=== PATIENT | female | born 1975 | race American Indian/Alaskan Native ===

== ENCOUNTER 2016-06-17 01:23 | Observation (INO) | payer BC, OTHER ==
[2016-06-17 02:15] LABS: CHLORIDE,CL 105 mmol/L (98-110); SODIUM,NA 136 mmol/L (136-146)
--- NOTE | 2016-06-17 02:32 | EDM.PDOC ---
ED HPI SEIZURE COMPLAINT - General Chief Complaint: Syncope Stated Complaint: FAINTED Time Seen by Provider: 06/17/16 02:20 Source of Information: Reports: Patient, Family, RN - History of Present Illness INITIAL COMMENTS - FREE TEXT/NARRATIVE: She's had a cold for about a week. She is at some facial fullness. Tonight she got out of bed her heard her fall and the floor. By the time he got into helper she is set up. Then she fell again. She said she lost consciousness for a brief period each time. There was no suspected seizure activity. There is no chest pain. There is no dyspnea. She feels weak. She denies sleep deprivation. She denies body aches. No vomiting. - Related Data Allergies/ADRs: Allergies Allergy/AdvReac Type Severity Reaction Status Date / Time No Known Allergies Allergy Verified 06/17/16 01:31 Home Meds: Home Meds . 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: Musculoskeletal History: Reports: None Neurological History: Reports: None Psychiatric History: Reports: None Endocrine/Metabolic History: Reports: None Hematologic History: Reports: None Immunologic History: Reports: None Oncologic (Cancer) History: Reports: None Dermatologic History: Reports: None - Past Surgical History Head Surgeries/Procedures: Reports: None HEENT Surgical History: Reports: None Cardiovascular Surgical History: Reports: None GI Surgical History: Reports: Cholecystectomy Female Surgical History: Reports: None Endocrine Surgical History: Reports: None Neurological Surgical History: Reports: None Musculoskeletal Surgical History: Reports: None Oncologic Surgical History: Reports: None Social & Family History - Tobacco Use Smoking Status *Q: Never Smoker - Caffeine Use Caffeine Use: Reports: Coffee - Recreational Drug Use Recreational Drug Use: No ED ROS GENERAL - Review of Systems Review Of Systems: See Below Constitutional: Reports: weakness. Denies: fever, chills HEENT: Reports: Sinus problem. Denies: Throat pain Respiratory: Denies: shortness of breath, cough, sputum Cardiovascular: Denies: Chest pain, Edema GI/Abdominal: Denies: Abdominal pain, Anorexia, Black stool, Bloody stool, Hematemesis, Hematochezia : Denies: dysuria Skin: Denies: cyanosis, jaundice, mottled Neurological: Denies: confusion - Physical Exam Exam: See Below Exam Limited By: No limitations General Appearance: alert, no apparent distress Ears: No: hearing loss Nose: other. No: nasal deformity, nasal flaring Throat/Mouth: Normal lips (Maxillary sinus pressure and tenderness.), Normal voice, No airway compromise Head Exam: atraumatic. No: scalp ecchymosis Neck: supple, non-tender Respiratory/Chest: no respiratory distress, lungs clear Cardiovascular: regular rate, rhythm, no JVD, no murmur, no rub. No: diastolic murmur, systolic murmur GI/Abdominal: non tender Neuro Exam (Abbreviated): alert, oriented Extremities: No: pedal edema (12-lead EKG shows normal sinus rhythm there some slight ST depression 23 and aVF I think this is a nonspecific change. Chest x- ray no acute disease there is an granuloma in the right midlung zone. CT of the head shows no acute change.) Psychiatric: normal mood Course - Vital Signs Last Recorded V/S: Last Vital Signs Temp 99.1 F 06/17/16 01:32 Pulse 105 H 06/17/16 01:48 Resp 17 06/17/16 01:48 BP 112/65 06/17/16 01:48 Pulse Ox 95 06/17/16 01:48 Orthostatic Blood Pressure [ 109/63 Standing] Orthostatic Blood Pressure [ 120/63 Supine] - Orders/Labs/Meds Orders: Active Orders 24 hr Category Date Time Status Cardiac Monitoring [RC] . DIRECTED Care 06/17/16 01:50 Active EKG Documentation Completion [RC] STAT Care 06/17/16 01:41 Active Chest 2V [CR] Stat Exams 06/17/16 01:41 Taken Head wo Cont [CT] Stat Exams 06/17/16 01:41 Taken Labs: Laboratory Tests 06/17/16 06/17/16 06/17/16 Range/Units 01:47 01:47 01:47 WBC 5.09 (4.0-11.0) K/uL RBC 4.21 L (4.30-5.90) M/uL Hgb 12.3 (12.0-16.0) g/dL Hct 36.5 (36.0-46.0) % MCV 86.7 (80.0-98.0) fL MCH 29.2 (27.0-32.0) pg MCHC 33.7 (31.0-37.0) g/dL RDW Std Deviation 42.4 (28.0-62.0) fl RDW Coeff of Kristine 13 (11.0-15.0) % Plt Count 150 (150-400) K/uL MPV 9.80 (7.40-12.00) fL Neut % (Auto) 75.8 (48.0-80.0) % Lymph % (Auto) 12.0 L (16.0-40.0) % Holt % (Auto) 11.8 (0.0-15.0) % Eos % (Auto) 0.2 (0.0-7.0) % Baso % (Auto) 0.2 (0.0-1.5) % Neut # 3.9 (1.4-5.7) K/uL Lymph # 0.6 (0.6-2.4) K/uL Holt # 0.6 (0.0-0.8) K/uL Eos # 0.0 (0.0-0.7) K/uL Baso # 0.0 (0.0-0.1) K/uL Nucleated RBC % 0.0 /100WBC Nucleated RBCs # 0 K/uL Sodium 136 (136-146) mmol/L Potassium 3.8 (3.5-5.1) mmol/L Chloride 105 (98-110) mmol/L Carbon Dioxide 22 (21-31) mmol/L BUN 14 (6.0-23.0) mg/dL Creatinine 0.9 (0.6-1.5) mg/dL Est Cr Clr Drug Dosing 76.23 mL/min Estimated GFR (MDRD) > 60.0 ml/min Glucose 116 H (60-110) mg/dL Calcium 8.7 L (8.8-10.8) mg/dL Total Bilirubin 0.4 (0.1-1.5) mg/dL AST 20 (5-40) IU/L ALT 18 (8-54) IU/L Alkaline Phosphatase 80 (40-150) CK-MB (CK-2) 0.6 (0-6.6) ng/ml Troponin I < 0.10 (0.0-0.29) NG/ML Total Protein 7.8 (6.0-8.0) g/dL Albumin 4.1 (3.5-5.0) g/dL Globulin 3.7 H (2.0-3.5) g/dL Albumin/Globulin Ratio 1.1 L (1.3-2.8) HCG, Qual (NEG) 06/17/16 Range/Units 01:47 WBC (4.0-11.0) K/uL RBC (4.30-5.90) M/uL Hgb (12.0-16.0) g/dL Hct (36.0-46.0) % MCV (80.0-98.0) fL MCH (27.0-32.0) pg MCHC (31.0-37.0) g/dL RDW Std Deviation (28.0-62.0) fl RDW Coeff of Kristine (11.0-15.0) % Plt Count (150-400) K/uL MPV (7.40-12.00) fL Neut % (Auto) (48.0-80.0) % Lymph % (Auto) (16.0-40.0) % Holt % (Auto) (0.0-15.0) % Eos % (Auto) (0.0-7.0) % Baso % (Auto) (0.0-1.5) % Neut # (1.4-5.7) K/uL Lymph # (0.6-2.4) K/uL Holt # (0.0-0.8) K/uL Eos # (0.0-0.7) K/uL Baso # (0.0-0.1) K/uL Nucleated RBC % /100WBC Nucleated RBCs # K/uL Sodium (136-146) mmol/L Potassium (3.5-5.1) mmol/L Chloride (98-110) mmol/L Carbon Dioxide (21-31) mmol/L BUN (6.0-23.0) mg/dL Creatinine (0.6-1.5) mg/dL Est Cr Clr Drug Dosing mL/min Estimated GFR (MDRD) ml/min Glucose (60-110) mg/dL Calcium (8.8-10.8) mg/dL Total Bilirubin (0.1-1.5) mg/dL AST (5-40) IU/L ALT (8-54) IU/L Alkaline Phosphatase (40-150) CK-MB (CK-2) (0-6.6) ng/ml Troponin I (0.0-0.29) NG/ML Total Protein (6.0-8.0) g/dL Albumin (3.5-5.0) g/dL Globulin (2.0-3.5) g/dL Albumin/Globulin Ratio (1.3-2.8) HCG, Qual NEGATIVE (NEG) Departure - Departure Time of Disposition: 02:32 Disposition: Refer to Observation Clinical Impression: Syncope Forms: ED Department Discharge Additional Instructions: I spoke with the patient and her family and recommended monitoring in the hospital. We discussed her Ultram conchita. We discussed using amoxicillin as she is in sinus tenderness and likely has an acute sinusitis. Discussed use of telemetry. She agrees. - My Orders Last 24 Hours: My Active Orders 06/17/16 01:41 EKG Documentation Completion [RC] STAT Chest 2V [CR] Stat Head wo Cont [CT] Stat 06/17/16 01:50 Cardiac Monitoring [RC] . DIRECTED - Assessment/Plan Last 24 Hours: My Active Orders 06/17/16 01:41 EKG Documentation Completion [RC] STAT Chest 2V [CR] Stat Head wo Cont [CT] Stat 06/17/16 01:50 Cardiac Monitoring [RC] . DIRECTED
[2016-06-17] MEDS ORDERED: Temazepam 15 MG Cap PO PRN (02:35)
[2016-06-17] MEDS ORDERED: Acetaminophen 325 MG Tab PO PRN (02:35)
[2016-06-17] MEDS ORDERED: Magnesium Hydroxide 400 MG/5 ML Susp 30 ML Cup PO PRN (02:35)
[2016-06-17] MEDS ORDERED: Ondansetron 4 MG Tab.DIS PO PRN (02:35)
[2016-06-17] MEDS ORDERED: Sodium Chloride 0.9% 2.5 ML Syringe FLUSH PRN (02:37)
[2016-06-17] MEDS ORDERED: Sodium Chloride 0.9% 10 ML Syringe FLUSH PRN (02:37)
[2016-06-17] MEDS: Amoxicillin 500 MG Cap PO SCH ×3 (03:14→18:27)
--- NOTE | 2016-06-17 08:16 | PCM.HP ---
<Lovely Smith M - Last Filed: 06/17/16 13:41> H&P History of Present Illness - General Date of Service: 06/17/16 Admit Problem/Dx: syncope Source of Information: Patient History Limitations: Reports: No limitations - History of Present Illness Initial Comments - Free Text/Narative: This 41 year old otherwise healthy female presented to the ED early this morning after syncope around midnight. She reports she got up from bed and used the bathroom. She was washing her hads and felt very nauseated and clammy, and started to feel like she was going to pass out. She started walked towards her bed and fell passing out. He heard her fall and was at her side immediately. No seizure activity noted. She awoke easily shortly after. She reports recently she has been ill, start on Wednesday. Her children have been ill as well, son has had both Influenza A and B and daughter a URI not influenza. She has had facial tenderness, with congestion cough body aches and malaise. She reports her temp has been elevated 100.7 at max feeling feverish and chills at home. Her appetite has been poor along with oral water intake. She use Flonase daily, otherwise has no other medications. In the ED all labwork was WNL. influenza swab negative. CXR negative for acute cardiopulmonary process. There was a 6 mm weill circumscribed calcified granuloma in R midlung. Head CT was unremarkable. She will be admitted and monitored on telemetry for syncope. Will treat for sinusitis as well. Headache Pain Score (Numeric/FACES): 2 - Related Data Allergies/Adverse Reactions: Allergies Allergy/AdvReac Type Severity Reaction Status Date / Time No Known Allergies Allergy Verified 06/17/16 01:31 Home Medications: Home Meds . [No Known Home Meds] 06/17/16 [History] Past Medical History HEENT History: Reports: Sinusitis Cardiovascular History: Reports: None. Denies: Blood clots/VTE/DVT, CAD, High cholesterol, Hypertension, PA Respiratory History: Reports: None. Denies: Asthma, COPD, PE Gastrointestinal History: Reports: None. Denies: GERD, GI bleed Genitourinary History: Reports: None. 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 Denies: CVA, TIA Psychiatric History: Reports: None Endocrine/Metabolic History: Reports: None. Denies: Diabetes, type II Hematologic History: Reports: None Immunologic History: Reports: None Oncologic (Cancer) History: Reports: None Dermatologic History: Reports: None - Past Surgical History Head Surgeries/Procedures: Reports: None HEENT Surgical History: Reports: None Cardiovascular Surgical History: Reports: None GI Surgical History: Reports: Cholecystectomy Female Surgical History: Reports: None Endocrine Surgical History: Reports: None Neurological Surgical History: Reports: None Musculoskeletal Surgical History: Reports: None Oncologic Surgical History: Reports: None Social & Family History - Family History Family Medical History: Noncontributory - Tobacco Use Smoking Status *Q: Never Smoker Second Hand Smoke Exposure: Yes - Caffeine Use Caffeine Use: Reports: Coffee - Recreational Drug Use Recreational Drug Use: No - Living Situation & Occupation Living situation: Reports: , with family Occupation: employed H&P Review of Systems - Review of Systems: Review Of Systems: See Below General: Reports: fever, chills, malaise, decreased appetite HEENT: Reports: headaches (frontal), sinus congestion, sore throat. Denies: ear pain Pulmonary: Reports: cough. Denies: shortness of breath Cardiovascular: Reports: no symptoms. Denies: chest pain, dyspnea on exertion, orthopnea, edema Gastrointestinal: Reports: Decreased appetite, Nausea. Denies: Abdominal pain, Black stool, Bloody stool, Vomiting Genitourinary: Reports: no symptoms. Denies: dysuria, frequency, burning, pain Musculoskeletal: Reports: no symptoms Skin: Reports: no symptoms Psychiatric: Reports: no symptoms Neurological: Reports: syncope. Denies: confusion, dizziness, seizure, trouble speaking Hematologic/Lymphatic: Reports: no symptoms Immunologic: Reports: no symptoms Exam - Exam Exam: See Below - Vital Signs Vital Signs: Last Vital Signs Temp 98.7 F 06/17/16 03:06 Pulse 92 06/17/16 03:06 Resp 20 06/17/16 03:06 BP 116/55 L 06/17/16 03:06 Pulse Ox 95 06/17/16 03:35 Weight: 161 lb 6.054 oz - Exam General: alert, oriented, cooperative HEENT: PERRLA, Hearing intact, Mucosa moist & pink, Nares patent, Normal nasal septum, Posterior pharynx clear, Conjunctiva clear, EOMI, EACs clear, TMs clear Neck: supple, trachea midline, 2+ carotid pulse wo bruit, full range of motion ( no nuchal rigidity). No: lymphadenopathy Lungs: Clear to auscultation, Normal respiratory effort Cardiovascular: regular rate, regular rhythm, normal S1, normal S2. No: bradycardia, tachycardia, systolic murmur Abdomen: normal bowel sounds, soft. No: organomegaly, guarding, tenderness, absent bowel sounds Extremities: normal inspection, normal pulses. No: edema, increased warmth Skin: warm, dry, intact Neurological: cranial nerves intact, reflexes equal bilateral Neuro Extensive - Mental Status: alert, oriented x3, normal mood/affect, normal cognition Neuro Extensive - Motor, Sensory, Reflexes: CN II-XII intact, normal gait, normal reflexes Psychiatric: alert, normal affect, normal mood - Patient Data Lab Results last 24 hrs: Laboratory Results - last 24 hr 06/17/16 06/17/16 Range/Units 05:01 05:01 Magnesium 2.1 (1.5-2.3) mEq/L Troponin I < 0.10 (0.0-0.29) NG/ML Result Diagrams: 06/17/16 01:47 06/17/16 01:47 EKG INTERPRETATION EKG Date: 06/17/16 Rhythm: NSR Rate (beats/min): 70 Oden: normal ST-T: depressed (likely non-specific) Comparison: NA - no prior EKG *Q Meaningful Use (ADM) - VTE *Q VTE Criteria *Q: - VTE Risk Assess *Q Each Risk Factor Represents 1 Point: Age 41 - 59 years Total Score 1 Point Risk Factors: 1 Each Risk Factor Represents 2 Points: None Total Score 2 Point Risk Factors: 0 Each Risk Factor Represents 3 Points: None Total Score 3 Point Risk Factors: 0 Each Risk Factor Represents 5 Points: None Total Score 5 Point Risk Factors: 0 Venous Thromboembolism Risk Factor Score *Q: 1 - Stroke *Q Stroke Criteria *Q: - AMI *Q AMI Criteria *Q: - Problem List (1) Sinusitis SNOMED Code(s): 98642089 ICD Code: J32.9 - CHRONIC SINUSITIS, UNSPECIFIED Status: Acute Current Visit: Yes Qualifiers: Sinusitis location: frontal Chronicity: acute Recurrence: non-recurrent Qualified Code(s): J01.10 - Acute frontal sinusitis, unspecified (2) Syncope SNOMED Code(s): 816422196 ICD Code: R55 - SYNCOPE AND COLLAPSE Status: Acute Current Visit: Yes Qualifiers: Encounter type: initial encounter Problem List Initiated/Reviewed/Updated: Yes Orders Last 24hrs: Active Orders 24 hr Category Date Time Status Telemetry Monitoring [Cardiac Monitoring] [RC] Q8H Care 06/17/16 02:52 Active Medication Orders Acetaminophen (Tylenol) 650 mg PO Q4H PRN PRN Reason: Pain (Mild 1-3)/fever Amoxicillin (Amoxil) 500 mg PO Q8H [facility] Last Admin: 06/17/16 03:14 Dose: 500 mg Enoxaparin Sodium (Lovenox) 40 mg SUBCUT DAILY [facility] Magnesium Hydroxide (Milk Of Magnesia) 30 ml PO Q12H PRN PRN Reason: Constipation Ondansetron HCl (Zofran Odt) 4 mg PO Q4H PRN PRN Reason: nausea, able to take PO Sodium Chloride (Saline Flush) 10 ml FLUSH ASDIRECTED PRN PRN Reason: Keep Vein Open Sodium Chloride (Saline Flush) 2.5 ml FLUSH ASDIRECTED PRN PRN Reason: Keep Vein Open Temazepam (Restoril) 15 mg PO BEDTIME PRN PRN Reason: Sleep Assessment/Plan Comment:: This 41 year old female admitted for syncope and acute sinusitis 1. Syncope: Potentially from dehydration in relation to recent illness. Will obtain carotid doppler as well as monitor for 24 hours on telemetry to rule out arrhythmias. Will give NS 125 x 1 L. Orthostatic VS stable. 2. Sinusitis: Amoxicillin TID. Will order Flonase. VTE: Lovenox Dispo: Likely discharge in am. <Dorina Larsen - Last Filed: 06/17/16 15:43> Exam - Vital Signs Vital Signs: Last Vital Signs Temp 98.3 F 06/17/16 11:43 Pulse 71 06/17/16 11:43 Resp 22 H 06/17/16 11:43 BP 113/62 06/17/16 11:43 Pulse Ox 96 06/17/16 11:43 Orthostatic Blood Pressure [ 127/75 Sitting] Orthostatic Blood Pressure [ 125/62 Standing] Orthostatic Blood Pressure [ 122/65 Supine] - Patient Data Lab Results last 24 hrs: Laboratory Results - last 24 hr 06/17/16 06/17/16 06/17/16 Range/Units 05:01 05:01 12:02 Magnesium 2.1 (1.5-2.3) mEq/L Troponin I < 0.10 < 0.10 (0.0-0.29) NG/ML Result Diagrams: 06/17/16 01:47 06/17/16 01:47 Jorgito Results last 24 hrs: Microbiology 06/17/16 10:30 Influenza Type A Antigen Screen - Final Nasal, Right NEGATIVE INFLUENZA A VIRUS AG Influenza Type B Antigen Screen - Final NEGATIVE INFLUENZA B VIRUS AG *Q Meaningful Use (ADM) - VTE *Q VTE Criteria *Q: - Stroke *Q Stroke Criteria *Q: - AMI *Q AMI Criteria *Q: Orders Last 24hrs: Active Orders 24 hr Category Date Time Status Orthostatic Vital Signs [RC] ASDIRECTED Care 06/17/16 08:23 Active Telemetry Monitoring [Cardiac Monitoring] [] Q8H Care 06/17/16 02:52 Active Carotid Comp [US] Routine Exams 06/17/16 09:13 Taken Fluticasone Propionate [Flonase] Med 06/17/16 14:15 Active 0 gm NASBOTH DAILY Sodium Chloride 0.9% [Normal Saline] 1,000 ml Med 06/17/16 10:00 Active IV ASDIRECTED Medication Orders Acetaminophen (Tylenol) 650 mg PO Q4H PRN PRN Reason: Pain (Mild 1-3)/fever Amoxicillin (Amoxil) 500 mg PO Q8H [facility] Last Admin: 06/17/16 10:18 Dose: 500 mg Admin: 06/17/16 03:14 Dose: 500 mg Enoxaparin Sodium (Lovenox) 40 mg SUBCUT DAILY [facility] Fluticasone Propionate (Flonase) 0 gm NASBOTH DAILY [facility] Last Admin: 06/17/16 14:31 Dose: 1 spray Sodium Chloride (Normal Saline) 1,000 mls @ 125 mls/hr IV ASDIRECTED [facility] Stop: 06/17/16 17:59 Last Admin: 06/17/16 10:17 Dose: 125 mls/hr Magnesium Hydroxide (Milk Of Magnesia) 30 ml PO Q12H PRN PRN Reason: Constipation Ondansetron HCl (Zofran Odt) 4 mg PO Q4H PRN PRN Reason: nausea, able to take PO Sodium Chloride (Saline Flush) 10 ml FLUSH ASDIRECTED PRN PRN Reason: Keep Vein Open Sodium Chloride (Saline Flush) 2.5 ml FLUSH ASDIRECTED PRN PRN Reason: Keep Vein Open Assessment/Plan Comment:: Patient seen and examined . Agree with assessment and plan . For syncope also patient will also order cardiac echo , serial troponins. For maxillary sinusitis will also give patient an antihistaminic such as Zyrtec .
[2016-06-17] MEDS ORDERED: Sodium Chloride 0.9% 1,000 ML IV SCH (10:00)
[2016-06-17] MEDS: Fluticasone Propionate Nasal Spray 16 GM Bottle NASBOTH SCH (14:31)
--- NOTE | 2016-06-17 15:14 | CR ---
EXAM DATE: 06/17/16 PATIENT'S AGE: 41 Patient: ELBA MIRAMONTES Facility: [place], [place] Site . Site : 1975 Study: XRay Chest [id number]/2017 2:01:34 AM Ordering Physician: Doctor Metcalf Final Report: INDICATION: Syncopal episode TECHNIQUE: Chest 2 views. COMPARISON: None FINDINGS: Cardiovascular and mediastinum: Heart size and vasculature are normal in caliber and appearance. Mediastinum is within normal limits. Lungs and pleural spaces: Lungs are clear. No sign of infiltrate. 6 millimeter well circumscribed probable calcified granuloma right mid lung. No sign of pleural effusion. No pneumothorax. Bones and soft tissues: No significant findings. IMPRESSION: No acute pulmonary or cardiac abnormalities. A 6 millimeter well circumscribed probable calcified granuloma right midlung. Dictated by Ab Fernandes MD @ 06/17/2016 2:05:17 AM Dictated by: bA Fernandes MD @ 06/17/2016 02:05:24 (Electronic Signature) Report Signed by Proxy and Original Signed Document filed in the Medical Record. [facility]
--- NOTE | 2016-06-17 15:15 | CT ---
EXAM DATE: 06/17/16 PATIENT'S AGE: 41 Patient: ELBA MIRAMONTES Facility: [place], [place] Site . Site : 1975 Study: CT Head [id number]/1/2017 2:02:08 AM Ordering Physician: Doctor Metcalf Final Report: INDICATION: Syncopal episode TECHNIQUE: CT head without contrast. COMPARISON: None. FINDINGS: CSF spaces: Within normal limits for age. Brain parenchyma: The castaneda-white differentiation is normal. No sign of mass, hemorrhage, or midline shift. Skull base and calvarium: Mucosal thickening right maxillary sinus. The visualized orbits are grossly unremarkable. No skull fractures. IMPRESSION: Unremarkable noncontrast head CT. No acute intracranial abnormalities. Dictated by Ab Fernandes MD @ 06/17/2016 2:06:50 AM Dictated by: Ab Fernandes MD @ 06/17/2016 02:06:55 (Electronic Signature) Report Signed by Proxy and Original Signed Document filed in the Medical Record. [facility]
--- NOTE | 2016-06-17 15:53 | US ---
EXAMINATION: Carotid US with castaneda scale and duplex imaging. HISTORY: Syncope FINDINGS: Ultrasound examination of bilateral cervical carotid arteries was performed using castaneda scale and dup aaron imaging. Minimal scattered atheromatous plaque noted within the carotid arteries. Antegrade fl ow is noted within the vertebral arteries. These are the peak velocities in cm per second (systole), right and left respectively, by a comma: CCA (common carotid artery) - 76, 84 ICA (internal carotid artery) - 134, 77 ECA (External carotid artery) - 103, 54 ICA/CCA systolic ratio Right - 1.9 Left - 1.0 IMPRESSION: 1. Elevated velocities are noted within the right internal carotid artery suggesting 50-69% stenosis however this may be artifactual as no significant atheromatous disease is noted on grayscale imagin g.
[2016-06-17] MEDS: Cetirizine 10 MG Tab PO SCH (16:11)
[2016-06-18] MEDS: Amoxicillin 500 MG Cap PO SCH ×2 (01:58→10:46)
[2016-06-18] MEDS: Cetirizine 10 MG Tab PO SCH (09:37)
[2016-06-18] MEDS: Fluticasone Propionate Nasal Spray 16 GM Bottle NASBOTH SCH (09:37)
--- NOTE | 2016-06-18 10:04 | PCM.DCSUM1 ---
<Lovely Smith M - Last Filed: 06/18/16 10:05> Discharge Summary - Hospital Course Brief History: This 41 year old otherwise healthy female presented to the ED 06/17 drawer in plain loom after syncope around midnight. She reports she got up from bed and used the bathroom. She was washing her hads and felt very nauseated and clammy, and started to feel like she was going to pass out. She started walked towards her bed and fell passing out. He heard her fall and was at her side immediately. No seizure activity noted. She awoke easily shortly after. She reports recently she has been ill, start on Wednesday. Her children have been ill as well, son has had both Influenza A and B and daughter a URI not influenza. She has had facial tenderness, with congestion cough body aches and malaise. She reports her temp has been elevated 100.7 at max feeling feverish and chills at home. Her appetite has been poor along with oral water intake. She use Flonase daily, otherwise has no other medications. In the ED all labwork was WNL. influenza swab negative. CXR negative for acute cardiopulmonary process. There was a 6 mm well circumscribed calcified granuloma in R midlung. Head CT was unremarkable. She was admitted and monitored on telemetry for syncope. Treated for sinusitis and dehydration as well. - Discharge Data Discharge Date: 06/18/16 Discharge Disposition: Home, Self-Care 01 Condition: Good - Discharge Diagnosis/Problem(s) (1) Sinusitis SNOMED Code(s): 05097830 ICD Code: J32.9 - CHRONIC SINUSITIS, UNSPECIFIED Status: Acute Qualifiers: Sinusitis location: frontal Chronicity: acute Recurrence: non-recurrent Qualified Code(s): J01.10 - Acute frontal sinusitis, unspecified (2) Syncope SNOMED Code(s): 832253976 ICD Code: R55 - SYNCOPE AND COLLAPSE Status: Acute Qualifiers: Encounter type: initial encounter - Patient Instructions Diet: Regular Diet as Tolerated Activity: As Tolerated Driving: May Drive Today Showering/Bathing: May Shower Notify Provider of: Fever, Increased Pain, Swelling and Redness, Drainage, Nausea and/or Vomiting - Discharge Plan Prescriptions/Med Rec: Amoxicillin/Potassium Clav [Augmentin 875-125 Tablet] 1 each PO BID #14 tablet Home Medications: Home Meds Amoxicillin/Potassium Clav [Augmentin 875-125 Tablet] 1 each PO BID #14 tablet 06/18/16 [Rx] Cetirizine [ZyrTEC] 10 mg PO DAILY tablet 06/18/16 [Rx] Fluticasone Propionate [Flonase] 0 gm NASBOTH DAILY bottle 06/18/16 [Rx] Patient Handouts: Amoxicillin; Clavulanic Acid tablets, Sinusitis, Adult, Easy- to-Read, Syncope, [id number] Referrals: Connie Clements PA-C [Ordering Only Provider] - 06/26/16 9:30 am - Discharge Summary/Plan Comment DC Time >30 min.: No Discharge Summary/Plan Comment: Discharge Diagnoses Sinusitis Dehydration Syncope Kailey was admitted and monitored on telemetry with no arrhythmias noted. She has had no symptoms of dizziness or syncope while here. Carotid doppler obtained with showed questionable R carotid stenosis 50-69% but the radiologist questioned if it was artifactual due to NO athermatous disease noted. Lipid panel obtained which revealed LDL 103, HDL 37 and triglycerides 52. No carotid bruit noted. I would recommend repeating carotid in 3 months with PCP along with following up on CXR for calcified granuloma in R mid lung. I will treat her for sinusitis with Augmentin upon discharge for 7 more days. Syncope likely related to recent illness and dehydration. She was treated with IVFs during stay as well. Will arrange follow up with PCP in 1 week and 3 months for imaging. - General Info Date of Service: 06/18/16 Admission Dx/Problem (Free Text: syncope Subjective Update: Doing well this morning, Has not slept well due to "uncomfortable due to bed" Otherwise has no complaints. NO chest pain, palpitations, SOB or dizziness or lightheadedness. She has been up ambulating in room and doing well. Would like to be discharged home. Functional Status: Reports: pain controlled, tolerating diet, ambulating, urinating - Review of Systems General: Reports: no symptoms. Denies: fever HEENT: Reports: sinus congestion. Denies: ear pain, headaches, sore throat, visual changes Pulmonary: Reports: no symptoms. Denies: shortness of breath, cough, sputum Cardiovascular: Reports: no symptoms. Denies: chest pain, palpitations, edema Gastrointestinal: Reports: No symptoms. Denies: Abdominal pain, Nausea, Vomiting Genitourinary: Reports: no symptoms Musculoskeletal: Reports: no symptoms Skin: Reports: no symptoms Neurological: Reports: no symptoms Psychiatric: Reports: no symptoms - Patient Data Vitals - Most Recent: Last Vital Signs Temp 99.1 F 06/18/16 04:00 Pulse 68 06/18/16 04:00 Resp 14 06/18/16 04:00 BP 98/56 L 06/18/16 04:00 Pulse Ox 97 06/18/16 04:00 Orthostatic Blood Pressure [ 127/75 Sitting] Orthostatic Blood Pressure [ 125/62 Standing] Orthostatic Blood Pressure [ 122/65 Supine] Weight - Most Recent: 161 lb 6.054 oz I&O - Last 24 hours: Intake & Output 06/17/16 06/18/16 06/18/16 22:59 06:59 14:59 Intake Total 1494 600 Output Total 1100 400 Balance 394 200 Lab Results - Last 24 hrs: Laboratory Results - last 24 hr 06/17/16 06/17/16 06/18/16 Range/Units 12:02 17:52 08:24 Troponin I < 0.10 < 0.10 (0.0-0.29) NG/ML Triglycerides 52 (10-190) mg/dL Cholesterol 150 (131-240) mg/dL LDL Cholesterol, Calc 103 (60-180) mg/dL VLDL Cholesterol 10 (5-55) mg/dL HDL Cholesterol 37 L (40-80) mg/dL Cholesterol/HDL Ratio 4.1 (3.3-6.0) JUAN Results - Last 24 hrs: Microbiology 06/17/16 10:30 Influenza Type A Antigen Screen - Final Nasal, Right NEGATIVE INFLUENZA A VIRUS AG Influenza Type B Antigen Screen - Final NEGATIVE INFLUENZA B VIRUS AG Med Orders - Current: Current Medications Acetaminophen (Tylenol) 650 mg PO Q4H PRN PRN Reason: Pain (Mild 1-3)/fever Amoxicillin (Amoxil) 500 mg PO Q8H [facility] Last Admin: 06/18/16 01:58 Dose: 500 mg Cetirizine HCl (Zyrtec) 10 mg PO DAILY [facility] Last Admin: 06/18/16 09:37 Dose: 10 mg Enoxaparin Sodium (Lovenox) 40 mg SUBCUT DAILY [facility] Fluticasone Propionate (Flonase) 0 gm NASBOTH DAILY [facility] Last Admin: 06/18/16 09:37 Dose: 2 spray Magnesium Hydroxide (Milk Of Magnesia) 30 ml PO Q12H PRN PRN Reason: Constipation Ondansetron HCl (Zofran Odt) 4 mg PO Q4H PRN PRN Reason: nausea, able to take PO Sodium Chloride (Saline Flush) 10 ml FLUSH ASDIRECTED PRN PRN Reason: Keep Vein Open Sodium Chloride (Saline Flush) 2.5 ml FLUSH ASDIRECTED PRN PRN Reason: Keep Vein Open Discontinued Medications Sodium Chloride (Normal Saline) 1,000 mls @ 125 mls/hr IV ASDIRECTED [facility] Stop: 06/17/16 17:59 Last Admin: 06/17/16 10:17 Dose: 125 mls/hr Temazepam (Restoril) 15 mg PO BEDTIME PRN PRN Reason: Sleep - Exam Quality Assessment: Reports: DVT prophylaxis General: Reports: alert, oriented, cooperative Neck: Reports: supple, +2 carotid pulse wo bruit. Denies: lymphadenopathy Lungs: Reports: Clear to auscultation, Normal respiratory effort Cardiovascular: Reports: regular rate, regular rhythm Abdomen: Reports: bowel sounds present, soft, no tenderness, no distension Extremities: Reports: no edema, normal pulses Skin: Reports: warm, dry, intact Psy/Mental Status: Reports: alert, normal affect, normal mood *Q Meaningful Use (DIS) - VTE *Q VTE Criteria *Q: - Stroke *Q Stroke Criteria *Q: - AMI *Q AMI Criteria *Q: <Dorina Larsen - Last Filed: 06/18/16 14:54> Discharge Summary - Discharge Summary/Plan Comment Discharge Summary/Plan Comment: Patient had a Ct angiogram of the neck done prior to discharge that was unremarkable. No further imaging necessary. Patient seen and examined , agree with discharge summary. - Patient Data Vitals - Most Recent: Last Vital Signs Temp 98.2 F 06/18/16 08:00 Pulse 76 06/18/16 08:00 Resp 16 06/18/16 08:00 BP 106/62 06/18/16 08:00 Pulse Ox 97 06/18/16 08:00 Orthostatic Blood Pressure [ 127/75 Sitting] Orthostatic Blood Pressure [ 125/62 Standing] Orthostatic Blood Pressure [ 122/65 Supine] I&O - Last 24 hours: Intake & Output 06/17/16 06/18/16 06/18/16 22:59 06:59 14:59 Intake Total 1494 600 Output Total 1100 400 Balance 394 200 Lab Results - Last 24 hrs: Laboratory Results - last 24 hr 06/17/16 06/18/16 Range/Units 17:52 08:24 Troponin I < 0.10 (0.0-0.29) NG/ML Triglycerides 52 (10-190) mg/dL Cholesterol 150 (131-240) mg/dL LDL Cholesterol, Calc 103 (60-180) mg/dL VLDL Cholesterol 10 (5-55) mg/dL HDL Cholesterol 37 L (40-80) mg/dL Cholesterol/HDL Ratio 4.1 (3.3-6.0) JUAN Results - Last 24 hrs: Microbiology 06/17/16 10:30 Influenza Type A Antigen Screen - Final Nasal, Right NEGATIVE INFLUENZA A VIRUS AG Influenza Type B Antigen Screen - Final NEGATIVE INFLUENZA B VIRUS AG Med Orders - Current: Current Medications Discontinued Medications Acetaminophen (Tylenol) 650 mg PO Q4H PRN PRN Reason: Pain (Mild 1-3)/fever Amoxicillin (Amoxil) 500 mg PO Q8H [facility] Last Admin: 06/18/16 10:46 Dose: 500 mg Cetirizine HCl (Zyrtec) 10 mg PO DAILY [facility] Last Admin: 06/18/16 09:37 Dose: 10 mg Enoxaparin Sodium (Lovenox) 40 mg SUBCUT DAILY [facility] Fluticasone Propionate (Flonase) 0 gm NASBOTH DAILY [facility] Last Admin: 06/18/16 09:37 Dose: 2 spray Sodium Chloride (Normal Saline) 1,000 mls @ 125 mls/hr IV ASDIRECTED [facility] Stop: 06/17/16 17:59 Last Admin: 06/17/16 10:17 Dose: 125 mls/hr Magnesium Hydroxide (Milk Of Magnesia) 30 ml PO Q12H PRN PRN Reason: Constipation Ondansetron HCl (Zofran Odt) 4 mg PO Q4H PRN PRN Reason: nausea, able to take PO Sodium Chloride (Saline Flush) 10 ml FLUSH ASDIRECTED PRN PRN Reason: Keep Vein Open Sodium Chloride (Saline Flush) 2.5 ml FLUSH ASDIRECTED PRN PRN Reason: Keep Vein Open Temazepam (Restoril) 15 mg PO BEDTIME PRN PRN Reason: Sleep *Q Meaningful Use (DIS) - VTE *Q VTE Criteria *Q: - Stroke *Q Stroke Criteria *Q: - AMI *Q AMI Criteria *Q:
[2016-06-18 10:19] VITALS: BP 106/62
[2016-06-18] MEDS ORDERED: Iopamidol 755 MG/ML 50 ML Bottle IV STA (11:55)
--- NOTE | 2016-06-18 14:20 | CT ---
EXAMINATION: CTA neck HISTORY: Nondiagnostic carotid Doppler COMPARISON: Ultrasound dated 06/17/2016 TECHNIQUE: Axial CT images obtained through the neck following the administration of 100 mL of Isovu e-370 left antecubital fossa. Coronal and sagittal reconstructions obtained. FINDINGS: The visualized lung apices are clear. The left carotid the brachiocephalic share a common origin. The common carotid arteries appear normal in caliber. The internal carotid and external car otid arteries appear normal. No evidence of significant atheromatous disease or narrowing. The verte bral arteries are codominant. The basilar artery is normal. No bulky cervical lymphadenopathy. Thyro id gland appears normal. The visualized osseous structures appear normal. IMPRESSION: Unremarkable CT of the neck without significant carotid artery stenosis.
[2016-06-18] MEDS ORDERED: Enoxaparin 40 MG/0.4 ML Syringe SUBCUT SCH (16:00)
== END 2016-06-18 14:45 | disposition home or self-care (01) ==
LOC: MW.ED 01:23 → MW.MS 02:52
PROVIDERS: ADMIT Family Medicine; ATTEND Family Medicine
DX: R55 Syncope and collapse (principal); J01.10 Acute frontal sinusitis, unspecified; E86.0 Dehydration; J84.10 Pulmonary fibrosis, unspecified; Z90.49 Acquired absence of other specified parts of digestive tract
CPT/HCPCS: 36415; 70450; 70498; 71020; 80053; 80061; 82553; 83735; 84484; 84703; 85025; 87804; 93005; 93880; 96360; 96361; 99285; A9270; G0378; J7040; Q9967; 99284

== ENCOUNTER → 2016-08-03 | Outpatient (CLI) | payer BC, OTHER ==
--- NOTE | 2016-08-04 11:45 | ECHO ---
EXAM DATE: 08/03/16 The echocardiogram report can be seen in this patient's EMR (Electronic Medical Record) in the Reports section. JENN
== END ==
LOC: MW.US 09:41
PROVIDERS: ATTEND Internal Medicine
DX: R55 Syncope and collapse (principal)
CPT/HCPCS: 93306

== ENCOUNTER → 2016-08-06 | Outpatient (CLI) | payer BC, OTHER ==
--- NOTE | 2016-08-06 11:06 | PCM.PRNOTE ---
- Free Text/Narrative Note: Exercise MIBI Indication syncope Sestamibi Tc99 25 MCi was given at the peak HR Patient was brought to the stress test lab in postabsorptive state verbal and paper consent was obtained from patient Vital signs at resting state blood pressure of 114/82 with a heart rate of 84 EKG shows sinus rhythm no ST changes no Q waves Maximal heart rate of 168 and target heart rate is 151 Patient reached the target heart rate, completed stage IV Nestor protocol Peak blood pressure is 144/78 Total exercise time of 10.[address] changes with a peak heart rate no arrhythmia METS 12.8 No symptom of chest pain or feeling dizzy Impression Normal hemodynamics, normal chronotropic, excellent exercise capacity, negative for ischemia on EKG Plan Nuclear portion pending
--- NOTE | 2016-08-06 14:12 | NM ---
EXAMINATION: Nuclear medicine myocardial perfusion study with exercise stress test. HISTORY: Syncope. PROCEDURE: Patient exercised according to Nestor protocol for 10 minutes and 44 seconds and achieved maximal hea rt rate of 168 beats per minute. Adequate exercise. Following intravenous administration of 24.5 mCi of technetium 99m sestamibi, stress SPECT images i ncluding gating imaging was performed. FINDINGS: Stress myocardial SPECT images demonstrates minimally decreased uptake along the anteroseptal wall n ear the base. The remainder of the left ventricular myocardial uptake appears normal. There is likel y a degree of breast attenuation artifact however this cannot be confirmed as source images are not provided. Review of gated images demonstrates normal wall motion, contractility and wall thickening. The left ventricular ejection fraction is 54 %. The left ventricular chamber size is normal. IMPRESSION: 1. Trace decreased uptake along the anteroseptal wall and there are the base. 2. Normal ventricular chamber size and function with ejection fraction of 54 %.
== END ==
LOC: MW.NM 07:32
PROVIDERS: ATTEND Internal Medicine
DX: R55 Syncope and collapse (principal)
CPT/HCPCS: 78451; 93017; A9500

== ENCOUNTER → 2016-08-13 | Outpatient (CLI) | payer BC, OTHER ==
--- NOTE | 2016-08-25 17:11 | NM ---
REPORT ADDENDUM ADDENDUM: Additional imaging was obtained at rest following the administration of 26.5 mCi of technetium 99m labeled sestamibi. FINDINGS/IMPRESSION: The previously decreased uptake along the anteroseptal wall is persistent however less prominent during rest imaging. There is no evidence of reversible perfusion. Ejection fraction at rest is 50%. Chamber size and wall motion appear similar. Addendum Dictated by: Chuck Daugherty MD <Electronically signed by Chuck Daugherty MD in [place]> 08/17/16 0849 3 3 EXAMINATION: Nuclear medicine myocardial perfusion study with exercise stress test. HISTORY: Syncope. PROCEDURE: Patient exercised according to Nestor protocol for 10 minutes and 44 seconds and achieved maximal heart rate of 168 beats per minute. Adequate exercise. Following intravenous administration of 24.5 mCi of technetium 99m sestamibi, stress SPECT images including gating imaging was performed. FINDINGS: Stress myocardial SPECT images demonstrates minimally decreased uptake along the anteroseptal wall near the base. The remainder of the left ventricular myocardial uptake appears normal. There is likely a degree of breast attenuation artifact however this cannot be confirmed as source images are not provided. Review of gated images demonstrates normal wall motion, contractility and wall thickening. The left ventricular ejection fraction is 54 %. The left ventricular chamber size is normal. IMPRESSION: 1. Trace decreased uptake along the anteroseptal wall and there are the base. 2. Normal ventricular chamber size and function with ejection fraction of 54 %. Dictated by: Chuck Daugherty MD <Electronically signed by Chuck Daugherty MD in [place]> 08/06/16 at 1410 1404 Doc Number: [id number] Copies To: Oneil De MD; Connie Clements PA-C~ [facility]
== END ==
LOC: MW.NM 07:45
PROVIDERS: ATTEND Internal Medicine
DX: R55 Syncope and collapse (principal); I49.3 Ventricular premature depolarization
CPT/HCPCS: 78451; A9500

== ENCOUNTER 2021-10-28 07:44 | Day surgery (SDC) | payer BC, OTHER ==
[~2021-10-28 07:44] MED LIST: Bupivacaine 0.25% 10 ML SDV ONE; Lidocaine 1% with EPINEPHrine 1:100,000 10 ML MDV ONE
[2021-10-28] MEDS ORDERED: Lactated Ringers 1,000 ML IV SCH (07:45)
[2021-10-28] MEDS ORDERED: HYDROmorphone 1 MG/ML Syringe IVPUSH PRN (08:18)
[2021-10-28] MEDS ORDERED: Albuterol 0.083% 2.5 MG/3 ML Neb Soln NEB PRN (08:18)
[2021-10-28] MEDS ORDERED: Metoclopramide 10 MG/2 ML SDV IVPUSH PRN (08:18)
[2021-10-28] MEDS ORDERED: Naloxone 0.4 MG/ML SDV IVPUSH PRN (08:18)
[2021-10-28] MEDS ORDERED: Ondansetron 4 MG/2 ML SDV IVPUSH PRN (08:18)
[2021-10-28] MEDS ORDERED: fentaNYL 50 MCG/ML SDV IVPUSH PRN (08:18)
[2021-10-28] MEDS ORDERED: Propofol 200 MG/20 ML SDV ONE (08:35)
[2021-10-28] MEDS ORDERED: Dexamethasone 4 MG/ML 5 ML MDV ONE (08:35)
[2021-10-28] MEDS ORDERED: Ketorolac 30 MG/ML SDV ONE (08:35)
[2021-10-28] MEDS ORDERED: Ondansetron 4 MG/2 ML SDV ONE (08:35)
[2021-10-28] MEDS ORDERED: fentaNYL 100 MCG/2 ML SDV ONE ×2 (08:35→10:39)
[2021-10-28] MEDS ORDERED: Lidocaine 2% 5 ML SDV ONE (08:35)
[2021-10-28] MEDS ORDERED: ePHEDrine 50 MG/ML SDV ONE (10:32)
[2021-10-28] MEDS ORDERED: Water For Injection, Sterile 20 ML ONE (10:32)
[2021-10-28] MEDS ORDERED: Ondansetron 4 MG/2 ML SDV IVPUSH ONE (11:20)
[2021-10-28 13:12] VITALS: BP 132/74; PULSE 73
== END 2021-10-28 13:00 | disposition home or self-care (01) ==
LOC: MW.SDS 07:44
PROVIDERS: ATTEND Obstetrics & Gynecology
DX: N39.3 Stress incontinence (female) (male) (principal); N36.41 Hypermobility of urethra; I10 Essential (primary) hypertension; I49.9 Cardiac arrhythmia, unspecified; Z79.82 Long term (current) use of aspirin
CPT/HCPCS: 36415; 57288; 84703; 85027; J0131; J0690; J1100; J2405; J2704; J3010; J3490; J7120; 00860; C1771; J1885

== ENCOUNTER 2023-02-23 06:42 | Day surgery (SDC) | payer BC, OTHER ==
[~2023-02-23 06:42] MED LIST changes: -Bupivacaine 0.25% 10 ML SDV ONE; +Lactated Ringers 1,000 ML IV SCH; -Lidocaine 1% with EPINEPHrine 1:100,000 10 ML MDV ONE
[2023-02-23] MEDS ORDERED: Metoclopramide 10 MG/2 ML SDV ONE (06:59)
[2023-02-23] MEDS ORDERED: Scopolamine 1.5 MG Transdermal Patch ONE (06:59)
[2023-02-23 07:05] LABS: HEMATOCRIT 38.3 % (37.0-47.0); HEMOGLOBIN 13.1 g/dL (12.0-16.0); MEAN CORPUSCULAR HEMOGLOBIN 30.6 pg (28.0-32.0); MEAN CORPUSCULAR HGB CONC 34.2 g/dL (32.0-36.0); MEAN CORPUSCULAR VOLUME 89.5 fL (83.0-99.0); MEAN PLATELET VOLUME 9.5 fL (9.4-12.3); PLATELET COUNT,PLT 227 K/uL (150-400); RED BLOOD CELL COUNT 4.28 M/uL (4.10-5.30); WHITE BLOOD CELL COUNT,WBC 4.81 K/uL (3.9-11.3)
[2023-02-23] MEDS ORDERED: droPERidol 5 MG/2 ML SDV IVPUSH PRN (07:12)
[2023-02-23] MEDS ORDERED: fentaNYL 50 MCG/ML SDV IVPUSH PRN (07:12)
[2023-02-23] MEDS ORDERED: Albuterol 0.083% 2.5 MG/3 ML Neb Soln NEB PRN (07:12)
[2023-02-23] MEDS ORDERED: Ondansetron 4 MG/2 ML SDV IVPUSH PRN ×2 (07:12→10:50)
[2023-02-23] MEDS ORDERED: Naloxone 0.4 MG/ML SDV IVPUSH PRN (07:12)
[2023-02-23] MEDS ORDERED: Morphine 2 MG/ML SYRINGE IVPUSH PRN (07:12)
[2023-02-23] MEDS ORDERED: HYDROmorphone 1 MG/ML Syringe IVPUSH PRN (07:12)
[2023-02-23] MEDS ORDERED: Metoclopramide 10 MG/2 ML SDV IVPUSH PRN (07:12)
[2023-02-23] MEDS ORDERED: Dexamethasone 4 MG/ML 5 ML MDV ONE (07:19)
[2023-02-23 07:22] LABS: CALCIUM 8.8 mg/dL (8.5-10.1); CARBON DIOXIDE,CO2 28.2 mmol/L (21.0-32.0); CREATININE 0.8 mg/dL (0.6-1.0); EST CRCL DRUG DOSING (CG) 80.51 mL/min; POTASSIUM,K 3.8 mmol/L (3.5-5.1)
[2023-02-23] MEDS ORDERED: Methylene Blue 1% 100MG/10 ML SDV ONE (07:22)
[2023-02-23] MEDS ORDERED: Rocuronium Bromide 50 MG/5 ML Syringe ONE ×3 (07:22→09:07)
[2023-02-23] MEDS ORDERED: Bupivacaine 0.25% 30 ML SDV ONE (07:22)
[2023-02-23] MEDS ORDERED: Sugammadex Sodium 200 MG/2 ML VIAL ONE (07:22)
[2023-02-23] MEDS ORDERED: propofoL 200 ML ONE (07:24)
[2023-02-23] MEDS ORDERED: Morphine 10 MG/ML SDV ONE (07:28)
[2023-02-23] MEDS ORDERED: fentaNYL 100 MCG/2 ML SDV ONE (07:28)
[2023-02-23] MEDS ORDERED: Ropivacaine 0.5% 5 MG/ML 30 ML SDV ONE (07:32)
[2023-02-23] MEDS ORDERED: ceFAZolin 2 GM Vial ONE (07:53)
[2023-02-23] MEDS ORDERED: Midazolam 1 MG/ML 2 ML SDV ONE (08:00)
[2023-02-23] MEDS ORDERED: Magnesium Sulfate (4.06 MEQ/ML) 5 GM/10 ML SDV ONE (08:36)
[2023-02-23] MEDS ORDERED: Ondansetron 4 MG/2 ML SDV ONE ×2 (08:36)
[2023-02-23] MEDS ORDERED: Phenylephrine HCl 0.5 MG/5 ML AMP ONE (08:37)
[2023-02-23] MEDS ORDERED: Tranexamic Acid 1,000 MG/10 ML Vial ONE (08:57)
[2023-02-23] MEDS ORDERED: Fluorescein 5 ML Vial ONE (09:48)
[2023-02-23] MEDS ORDERED: Glycopyrrolate 0.2 MG/ML SDV ONE (10:19)
[2023-02-23] MEDS ORDERED: Ketorolac 30 MG/ML SDV ONE (10:25)
[2023-02-23] MEDS ORDERED: Promethazine 25 MG/ML SDV IM PRN (10:50)
[2023-02-23] MEDS ORDERED: oxyCODONE 5 MG Tab PO PRN (10:50)
[2023-02-23] MEDS ORDERED: Acetaminophen 325 MG Tab PO PRN (10:50)
[2023-02-23] MEDS ORDERED: Ketorolac 30 MG/ML SDV IVPUSH ONE (10:50)
[2023-02-23] MEDS: Ketorolac 30 MG/ML SDV IVPUSH SCH ×3 (13:30→22:40)
[2023-02-24 07:08] LABS: CALCIUM 8.4 mg/dL (8.5-10.1); CARBON DIOXIDE,CO2 27.4 mmol/L (21.0-32.0); EST CRCL DRUG DOSING (CG) 64.41 mL/min
[2023-02-24] MEDS: Ketorolac 30 MG/ML SDV IVPUSH SCH (07:24)
[2023-02-24 07:32] LABS: EOSINOPHILS ABSOLUTE AUTO 0.01 K/uL (0.00-0.45); EOSINOPHILS PERCENT AUTO 0.1 % (0.0-6.0); HEMATOCRIT 29.9 % (37.0-47.0); HEMOGLOBIN 10.4 g/dL (12.0-16.0); IMMATURE GRAN ABSOLUTE AUTO 0.02 K/uL (0.00-0.05); IMMATURE GRAN PERCENT AUTO 0.2 % (0.0-0.4); LYMPHOCYTES ABSOLUTE AUTO 1.45 K/uL (1.00-4.80); LYMPHOCYTES PERCENT AUTO 15.9 % (24.0-44.0); MEAN CORPUSCULAR HEMOGLOBIN 31.6 pg (28.0-32.0); MEAN CORPUSCULAR HGB CONC 34.8 g/dL (32.0-36.0); MEAN CORPUSCULAR VOLUME 90.9 fL (83.0-99.0); MEAN PLATELET VOLUME 9.6 fL (9.4-12.3); MONOCYTES ABSOLUTE AUTO 1.03 K/uL (0.00-0.80); MONOCYTES PERCENT AUTO 11.3 % (0.0-8.0); NEUTROPHILS ABSOLUTE AUTO 6.62 K/uL (1.80-7.70); NEUTROPHILS PERCENT AUTO 72.5 % (41.0-71.0); PLATELET COUNT,PLT 206 K/uL (150-400); RED BLOOD CELL COUNT 3.29 M/uL (4.10-5.30); WHITE BLOOD CELL COUNT,WBC 9.13 K/uL (3.9-11.3)
[2023-02-24 07:54] LABS: POTASSIUM,K 4.2 mmol/L (3.5-5.1)
[2023-02-24 08:49] VITALS: BP 106/56; PULSE 70
[2023-02-24] MEDS ORDERED: TELMISARTAN 40 MG PO SCH (09:00)
[2023-02-24] MEDS ORDERED: Hydrochlorothiazide 25 MG Tab PO SCH (09:00)
== END 2023-02-24 09:48 | disposition home or self-care (01) ==
LOC: MW.SDS 06:42 → MW.MS 11:19 → MW.SDS 02-24 09:48
PROVIDERS: ATTEND Obstetrics & Gynecology
DX: N80.202 Endometriosis of left fallopian tube, unspecified depth (principal); D25.9 Leiomyoma of uterus, unspecified; N83.8 Other noninflammatory disorders of ovary, fallopian tube and broad ligament; I10 Essential (primary) hypertension; Z79.899 Other long term (current) drug therapy
CPT/HCPCS: 36415; 58571; 80048; 84703; 85025; 85027; 86850; 86900; 86901; 86920; A9270; J0131; J0690; J1100; J1170; J1885; J2250; J2270; J2371; J2405; J2550; J2704; J2795; J3010; J3475; J3490; J7030; J7120; Q9968; 00944; 64488; J2765